=== PATIENT | male | born 1965 | race Two or more races ===

== ENCOUNTER 2018-08-27 10:29 | Day surgery (SDC) | payer OTHER ==
[2018-08-23 10:41] VITALS: BMI 26.8
[2018-08-27] MEDS ORDERED: oxyCODONE HCL 5 MG TABLET PO PRN (12:58)
[2018-08-27] MEDS ORDERED: ONDANSETRON 4 MG/2 ML VIAL IVPUSH PRN (12:58)
[2018-08-27] MEDS ORDERED: LACTATED RINGERS SOLUTION 1,000 ML IV SCH (13:00)
[2018-08-27] MEDS ORDERED: MIDAZOLAM HCL 2 MG/2 ML SINGLE DOSE VIAL ONE ×2 (13:59→14:02)
[2018-08-27] MEDS ORDERED: BUPIVACAINE HCL/PF 0.5% (5MG/ML) 10 ML VIAL ONE ×2 (14:00→14:24)
[2018-08-27] MEDS ORDERED: PROPOFOL 20 ML ONE ×2 (14:02)
[2018-08-27] MEDS ORDERED: SUCCINYLCHOLINE CHLORIDE 200 MG/10 ML VIAL ONE (14:03)
[2018-08-27] MEDS ORDERED: MORPHINE SULFATE 10 MG/1 ML *VIAL ONE (14:03)
[2018-08-27] MEDS ORDERED: KETOROLAC TROMETHAMINE 30 MG/1 ML VIAL ONE (14:04)
[2018-08-27] MEDS ORDERED: LIDOCAINE HCL/PF 2% SDV 5ML VIAL ONE (14:04)
[2018-08-27] MEDS ORDERED: DEXAMETHASONE SOD PHOSPHATE 4 MG/1 ML VIAL ONE (14:04)
[2018-08-27] MEDS ORDERED: ONDANSETRON 4 MG/2 ML VIAL ONE (14:04)
[2018-08-27] MEDS ORDERED: ceFAZolin SODIUM 1 GM VIAL ONE (14:04)
[2018-08-27] MEDS ORDERED: LIDOCAINE HCL 2% JELLY (5 ML/TUBE) ONE (14:04)
[2018-08-27 15:19] VITALS: TEMP 98.2
[2018-08-27 17:04] VITALS: BP 143/93; PULSE 72
--- NOTE | 2018-08-28 08:55 | OP ---
DATE OF OPERATION: 08/27/2018 PREOPERATIVE DIAGNOSIS: Torn medial meniscus to the left knee. POSTOPERATIVE DIAGNOSIS: Torn medial and lateral meniscus, left knee, with chondromalacia, hypertrophic synovium and joint debris. PROCEDURE PERFORMED: Operative arthroscopy, left knee, with partial medial and lateral meniscectomy, chondroplasty, synovectomy, joint debridement. SURGEON: Ava Mendoza MD SCREEN PRINTING CLOTH SPREADER: Wayne Mari, REF-RNF ANESTHESIA: Irwin Martinez REF-DO; general anesthesia. The procedure consisted of the patient being brought in the operating room and gently transferred from the stretcher to the OR table with all bony prominences well padded. The left leg was prepared and draped in a sterile fashion. The patient was given intravenous antibiotics and copious irrigation throughout the procedure to minimize risk of infection. Complete risk, benefit and alternative discussion was conducted with the patient which was inclusive of but not limited to infection, bleeding, , paralysis, increased pain, need for repeat surgery. Patient asked questions, understood the procedure and desired to proceed with surgical treatment. Following sterile preparation and draping of the left leg an appropriate timeout which was inclusive of but not limited to site of surgery, type of surgery, surgeon, anesthesiologist was conducted. Following sterile preparation and draping the patient's leg was exsanguinated using a rubber Esmarch bandage and tourniquet inflated to 325 mmHg. Suprapatellar, medial and lateral joint line portals were used to introduce the arthroscope and arthroscopic instruments. The knee was examined. There was noted to be hypertrophic synovium in the suprapatellar pouch. A partial synovectomy was performed. The inferior surface of the patella had damage consistent with chondromalacia. It was smoothed using a shaver medial and lateral gutters without plica or loose body. Medial meniscus was found to have a tear of the posterior horn and this was resected using a shaver as well as radiofrequency wand. Intercondylar region was noted to have joint debris and a joint debridement was performed. Cruciate ligaments were found to be intact. Lateral meniscus was found to have a tear of the posterior horn and this was resected using a shaver and radiofrequency wand. The knee was then copiously irrigated with sterile saline irrigant. Wounds were closed with 4-0 undyed Vicryl followed by Steri-Strips, Xeroform, 4 x 4's, followed by sterile Webril, Ziyad bandages and a knee immobilizer. The patient was then gently removed from anesthesia without incident. The tourniquet was deflated after approximately 20 minutes of tourniquet time. There were no intraoperative complications. AVA MENDOZA M.D. [id number]
== END 2018-08-27 16:55 | disposition home or self-care (01) ==
LOC: FASU 10:29
PROVIDERS: ATTEND Orthopaedic Surgery
PROC: 0SBD4ZZ Excision of Left Knee Joint, Percutaneous Endoscopic Approach (ICD-10-PCS; 2018-08-27)
PROC: 0SBD4ZZ Excision of Left Knee Joint, Percutaneous Endoscopic Approach (ICD-10-PCS; 2018-08-27)
PROC: 0SBD4ZZ Excision of Left Knee Joint, Percutaneous Endoscopic Approach (ICD-10-PCS; principal; 2018-08-27 14:36)
DX: S83.242A Other tear of medial meniscus, current injury, left knee, initial encounter (principal); S83.282A Other tear of lateral meniscus, current injury, left knee, initial encounter; M22.42 Chondromalacia patellae, left knee; M67.262 Synovial hypertrophy, not elsewhere classified, left lower leg; M25.862 Other specified joint disorders, left knee
CPT/HCPCS: 94760